=== PATIENT | female | born 1945 | race Caucasian/White ===

== ENCOUNTER 2018-11-01 08:50 | Emergency (ER) | payer MEDICARE ==
[~2018-11-01] VITALS: Ht 152.4 cm; Wt 105.7 kg
--- NOTE | 2018-11-01 09:07 | PHYS DOC ---
Past Medical History Past Medical History: Diabetes-Type II, Hypertension Past Surgical History: Other Additional Past Surgical Histo: LEFT KNEE, RIGHT HAND Alcohol Use: None Drug Use: None Adult General Chief Complaint Chief Complaint: ANKLE PROBLEM HPI HPI Patient is a 73 year old female who presents with 2200 last night she stood up from her chair and her left knee gave out and she rolled her left ankle. She went to bed and this morning she awoke with swelling and pain with standing on the left ankle. Review of Systems Review of Systems Constitutional: Denies fever or chills [] Eyes: Denies change in visual acuity, redness, or eye pain [] HENT: Denies nasal congestion or sore throat [] Respiratory: Denies cough or shortness of breath [] Cardiovascular: No additional information not addressed in HPI [] GI: Denies abdominal pain, nausea, vomiting, bloody stools or diarrhea [] : Denies dysuria or hematuria [] Musculoskeletal: Denies back pain. Left ankle joint pain [] Integument: Denies rash or skin lesions [] Neurologic: Denies headache, focal weakness or sensory changes [] All other systems were reviewed and found to be within normal limits, except as documented in this note. Current Medications Current Medications Current Medications Medications (Trade) Dose Ordered Sig/Sarina Start Time Stop Time Status Last Admin Dose Admin Acetaminophen/ Hydrocodone Bitart (Lortab 5/325) 1 tab 1X ONCE 11/01/18 09:15 11/01/18 09:16 DC 11/01/18 09:15 1 TAB Allergies Allergies Allergies Coded Allergies Type Severity Reaction Last Updated Verified No Known Drug Allergies 11/01/18 No Physical Exam Physical Exam Constitutional: Well developed, well nourished, no acute distress, non-toxic appearance. [] HENT: Normocephalic, atraumatic, bilateral external ears normal, oropharynx moist, no oral exudates, nose normal. [] Eyes: PERRLA, EOMI, conjunctiva normal, no discharge. [] Neck: Normal range of motion, no tenderness, supple, no stridor. [] Cardiovascular:Heart rate regular rhythm, no murmur [] Lungs & Thorax: Bilateral breath sounds clear to auscultation [] Abdomen: Bowel sounds normal, soft, no tenderness, no masses, no pulsatile masses. [] Skin: Warm, dry, no erythema, no rash. [] Back: No tenderness, no CVA tenderness. [] Extremities: Anterior left ankle tenderness, no cyanosis, no clubbing, ROM intact, 2+ left ankle edema. [] Neurologic: Alert and oriented X 3, normal motor function, normal sensory function, no focal deficits noted. [] Psychologic: Affect normal, judgement normal, mood normal. [] Current Patient Data Vital Signs Vital Signs Date Time Temp Pulse Resp B/P (MAP) Pulse Ox O2 Delivery O2 Flow Rate FiO2 11/01/18 09:15 19 95 Room Air 11/01/18 08:58 100.2 104 162/72 (102) 100.2 EKG EKG [] Radiology/Procedures Radiology/Procedures Left ankle Impressions: [facility] [address] [place] [address] IMAGING REPORT Signed PATIENT: BEN DESAI ACCOUNT: [id number] : 1945 LOCATION: ER AGE: 73 SEX: F EXAM STATUS: PRE ER ORD. PHYSICIAN: PATRICIA INIGUEZ APRN REASON: injury, pain PROCEDURE: ANKLE LEFT 3V Three-view left ankle study Clinical indications: Patient fell getting out of chair last night. Pain. FINDINGS: There is an oblique fracture of the distal shaft of the left fibula. There is 3 mm of medial displacement of the shaft with respect to the distal epiphysis. In the lateral view, there is fracture of the anterior aspect of the tibial plafond. There is widening of the medial mortise ankle joint consistent with disruption of the mortise ankle joint. Accessory ossification center of the medial malleolus is seen. No lytic process is seen. Lateral soft tissue swelling is evident. IMPRESSION: Acute posttraumatic fracture of the distal left fibula. Fractured anterior tibial plafond. Widening of the medial aspect of the mortise ankle joint consistent with tear of the deltoid ligament. Electronically signed by: Master Delgado MD (11/01/2018 9:23 AM) [id number] DICTATED and SIGNED BY: MASTER DELGADO MD DATE: 11/01/18 0920 Course & Med Decision Making Course & Med Decision Making Patient is a 73 year old female who presents with 2200 last night she stood up from her chair and her left knee gave out and she rolled her left ankle. She went to bed and this morning she awoke with swelling and pain with standing on the left ankle. Alert and oriented. States she did not take any pain medicine today. Rates her pain a 6 out of 10. There is no laxity in the joint. She has intact range of motion but there is pain. Pedal pulses present. There is no pedal edema but there is 2+ ankle edema. Patient has no tib-fib pain with palpation. Currently pain that she has around ankle is the anterior part of the ankle slightly tender with palpation. She can wiggle her toes. She denies any numbness or tingling. The pain does not radiate. She is given a [place] in the ED. Xray shows Acute posttraumatic fracture of the distal left fibula. Fractured anterior tibial plafond. Widening of the medial aspect of the mortise ankle joint consistent with tear of the deltoid ligament. Patient will be put into a posterior splint with a stirrup. I have spoken to Dr. Gu and he states to follow up with him on Monday. Dragon Disclaimer Sauloon Disclaimer This electronic medical record was generated, in whole or in part, using a voice recognition dictation system. Departure Departure Impression: Primary Impression: Left fibular fracture Additional Impressions: Tibia fracture Deltoid (ligament), ankle sprain Disposition: HOME, SELF-CARE Condition: GOOD Referrals: JAYMIE GU MD Patient Instructions: Tibial and Fibular Fracture, Adult Additional Instructions: Call Dr. Gu office on Monday for follow-up care. You can call them today to see if he can get a scheduled appointment for Monday also. Nonweightbearing on the affected leg and take medications as prescribed. Scripts Hydrocodone/Apap 5-325 (NORCO 5-325 TABLET) 1 Each Tablet 1 TAB PO PRN Q6HRS PRN for PAIN, #20 TAB 0 Refills Prov: HIRAPATRICIA M BRIMMING MACHINE OPERATOR 11/01/18 Problem Qualifiers Primary Impression: Left fibular fracture Encounter type: initial encounter Fibula location: distal Fracture type: closed Fracture morphology: unspecified fracture morphology Qualified Codes: S82.832A - Other fracture of upper and lower end of left fibula, initial encounter for closed fracture Additional Impressions: Tibia fracture Encounter type: initial encounter Tibia location: distal Fracture type: closed Fracture morphology: pilon Fracture alignment: nondisplaced Laterality: left Qualified Codes: S82.875A - Nondisplaced pilon fracture of left tibia, initial encounter for closed fracture Deltoid (ligament), ankle sprain Encounter type: initial encounter Laterality: left Qualified Codes: S93.422A - Sprain of deltoid ligament of left ankle, initial encounter PATRICIA INIGUEZ BRIMMING MACHINE OPERATOR Nov 01, 2018 09:07
[2018-11-01] MEDS ORDERED: HYDROcodone/APAP 5/325MG 1 TAB TABLET PO ONE (09:15)
--- NOTE | 2018-11-01 09:27 | RAD ---
Three-view left ankle study Clinical indications: Patient fell getting out of chair last night. Pain. FINDINGS: There is an oblique fracture of the distal shaft of the left fibula. There is 3 mm of medial displacement of the shaft with respect to the distal epiphysis. In the lateral view, there is fracture of the anterior aspect of the tibial plafond. There is widening of the medial mortise ankle joint consistent with disruption of the mortise ankle joint. Accessory ossification center of the medial malleolus is seen. No lytic process is seen. Lateral soft tissue swelling is evident. IMPRESSION: Acute posttraumatic fracture of the distal left fibula. Fractured anterior tibial plafond. Widening of the medial aspect of the mortise ankle joint consistent with tear of the deltoid ligament. Electronically signed by: Scott Delgado MD (11/01/2018 9:23 AM) [id number]
[2018-11-01] MEDS ORDERED: HYDR-3164 PO (09:41)
[2018-11-01 10:36] VITALS: BP 173/75
[2018-11-08] MEDS ORDERED: GLIM4TAB2 PO (12:27)
[2018-11-08] MEDS ORDERED: METF850T8 PO (12:27)
[2018-11-08] MEDS ORDERED: PIOG30TA41 PO (12:28)
[2018-11-08] MEDS ORDERED: LISI1TAB7 PO (12:28)
[2018-11-08] MEDS ORDERED: ASPI-630 PO (12:29)
[2018-11-09] MEDS ORDERED: OXYC1TAB19 PO ×2 (11:52→11:53)
[2018-11-09] MEDS ORDERED: PROM25TA10 PO (11:53)
[2018-11-09] MEDS ORDERED: HYDR-2765 PO (12:10)
[2019-02-21] MEDS ORDERED: ERGO500027 PO (18:37)
[2019-02-21] MEDS ORDERED: ASPI-630 PO (18:38)
[2019-02-21] MEDS ORDERED: LISI1TAB7 PO (18:38)
[2019-02-21] MEDS ORDERED: ACET500T33 PO (18:39)
[2019-03-08] MEDS ORDERED: OXYC1TAB15 PO (11:49)
[2019-03-08] MEDS ORDERED: ASPI325T11 PO (11:50)
[2019-03-14] MEDS ORDERED: POLY17PO29 PO (03:02)
[2019-03-14] MEDS ORDERED: MAG355OR11 PO (03:02)
[2019-03-14] MEDS ORDERED: ACET500T68 PO (03:02)
[2019-03-14] MEDS ORDERED: PROM12.58 PO (03:02)
[2019-03-14] MEDS ORDERED: BISA-42 PO (03:02)
[2019-03-19] MEDS ORDERED: Pantoprazole PO (08:55)
[2019-03-19] MEDS ORDERED: ACET500T68 PO (08:55)
[2019-03-19] MEDS ORDERED: OXYC1TAB15 PO (08:55)
[2019-03-19] MEDS ORDERED: AMOX1TAB11 PO (08:55)
== END 2018-11-01 10:38 | disposition home or self-care (01) ==
LOC: ER 08:50
DX: S82.832A Other fracture of upper and lower end of left fibula, initial encounter for closed fracture (principal); S82.875A Nondisplaced pilon fracture of left tibia, initial encounter for closed fracture; S93.422A Sprain of deltoid ligament of left ankle, initial encounter; I10 Essential (primary) hypertension; E11.9 Type 2 diabetes mellitus without complications; X50.9XXA Other and unspecified overexertion or strenuous movements or postures, initial encounter; Y93.89 Activity, other specified; Y92.89 Other specified places as the place of occurrence of the external cause; Y99.8 Other external cause status
CPT/HCPCS: 73610; 99284

== ENCOUNTER → 2018-11-09 | Day surgery (SDC) | payer MEDICARE ==
[~2018-11-09] VITALS: Ht 165.1 cm; Wt 105.7 kg
[~2018-11-09] MED LIST: ASPI-630 PO; BUPIVAC MPF-EPI 0.5%-1:200000 30 ML VIAL. ONE; DEXAMETHASONE SOD PHOS 20 MG/5 ML VIAL. ONE; GLIM4TAB2 PO; HYDR-2765 PO; HYDR-3164 PO; HYDROcodone/APAP 7.5/325MG 1 TAB TABLET PO ONE; HYDROmorphone 2 MG/ML VIAL IV PRN; IV RINGERS,LACTATED 1000ML 1,000 ML IV SCH; LIDOCAINE 1% PF 2 ML VIAL. ID PRN; LIDOCAINE 2% PF Vial for OR 5 ML VIAL. ONE; LISI1TAB7 PO; METF850T8 PO; MORPHINE SULFATE 4 MG/ML VIAL. IV PRN; ONDANSETRON PF 4 MG/2 ML VIAL. IV PRN; ONDANSETRON PF 4 MG/2 ML VIAL. ONE; OXYC1TAB19 PO; PIOG30TA41 PO; PROCHLORPERAZINE 10 MG/2 ML VIAL. IV PRN; PROM25TA10 PO; PROPOFOL 20 ML IV ONE; SEVOFLURANE 31 TO 60 MINUTES. IH ONE; ePHEDrine PF IN SALINE 50 MG/5 ML DISP.SYRIN IV ONE; fentaNYL PF VIAL 100 MCG/2 ML VIAL IV PRN; fentaNYL PF VIAL 100 MCG/2 ML VIAL ONE; oxyCODONE/APAP 7.5/325 1 TAB TABLET ONE; oxyCODONE/APAP 7.5/325 1 TAB TABLET PO ONE
--- NOTE | 2018-11-09 08:45 | PDOC1 ---
History and Physical Date of Admission Date of Admission DATE: 11/09/18 TIME: 08:35 Identification/Chief Complaint Chief Complaint left ankle fracture Source Source: Chart review, Patient History of Present Illness History of Present Illness This 73-year-old woman stood up from a chair on October 31, and her knee buckled and she rolled her left ankle. She got up the next morning the 10th and it was severely painful and swollen. She went to the emergency room where x-rays showed a lateral malleolus fracture. She was placed in a splint. She has a displaced fracture, and surgery is recommended. She is here for left ankle fracture surgery. Past Medical History Cardiovascular: HTN Endocrine: Diabetes Past Surgical History Past Surgical History left knee surgery, carpal tunnel release Family History Family History mother and father are Social History Smoke: Quit ALCOHOL: none Current Medications Current Medications Current Medications Ondansetron HCl (Zofran) 4 mg PRN Q6HRS PRN IV NAUSEA/VOMITING; Start 11/09/18 at 07:00; Stop 11/10/18 at 06:59 Fentanyl Citrate (Fentanyl 2ml Vial) 25 mcg PRN Q5MIN PRN IV MILD PAIN; Start 11/09/18 at 07:00; Stop 11/10/18 at 06:59 Fentanyl Citrate (Fentanyl 2ml Vial) 50 mcg PRN Q5MIN PRN IV MODERATE TO SEVERE PAIN; Start 11/09/18 at 07:00; Stop 11/10/18 at 06:59 Morphine Sulfate (Morphine Sulfate) 1 mg PRN Q10MIN PRN IV SEVERE PAIN; Start 11/09/18 at 07:00; Stop 11/10/18 at 06:59 Ringer's Solution 1,000 ml @ 30 mls/hr Q24H IV ; Start 11/09/18 at 07:00; Stop 11/09/18 at 18:59 Lidocaine HCl (Xylocaine-Mpf 1% 2ml Vial) 2 ml PRN 1X PRN ID IV START; Start at 07:00; Stop 11/10/18 at 06:59 Hydromorphone HCl (Dilaudid) 0.5 mg PRN Q10MIN PRN IV SEV PAIN, Second choice; Start 11/09/18 at 07:00; Stop 11/10/18 at 06:59 Prochlorperazine Edisylate (Compazine) 5 mg PACU PRN PRN IV NAUSEA, MRX1; Start 11/09/18 at 07:00; Stop 11/10/18 at 06:59 Cefazolin Sodium/ Dextrose 50 ml @ 100 mls/hr 1X PREOP PRN IV PRIOR TO PROCEDURE; Start 11/09/18 at 06:00; Stop 11/09/18 at 18:00 Active Scripts Active [place] 5-325 Tablet (Acetaminophen/Hydrocodone Bitart) 1 Each Tablet 1 Tab PO PRN Q6HRS PRN Reported Aspirin 81 Mg Tab.chew 1 Tab PO DAILY Lisinopril-Hctz 20-25 Mg Tab (Lisinopril/Hydrochlorothiazide) 1 Each Tablet 1 Tab PO DAILY Actos (Pioglitazone Hcl) 30 Mg Tablet 1 Tab PO DAILY Metformin Hcl 850 Mg Tablet 850 Mg PO BIDWMEALS Glimepiride 4 Mg Tablet 1 Tab PO DAILY Allergies Allergies: Coded Allergies: latex (Verified Allergy, Unknown, BROKE OUT WITH HIVES, 11/08/18) ROS General: No: Chills, Night Sweats Eyes: No Double vision HEENT: No: Heacaches Hematological and Lymphatic: No: Blood Clots Respiratory: No: Cough, Shortness of breath, SOB with excertion Cardiovascular: No Chest Pain, No Palpitations Gastrointestinal: No Nausea, No Vomiting, No Diarrhea, No Constipation Musculoskeletal: Yes Joint Pain Neurological: No Bowel/Bladder ControlChng Physical Exam General: Alert, Cooperative HEENT: Atraumatic Lungs: Normal air movement Heart: RRR Abdomen: Soft Extremities: Normal pulses, Other (Patient is unable to weight bear on the left ankle. The overall alignment is swollen and slightly grossly enlarged at the joint. There is swelling laterally at the distal fibula. There is focal tenderness of the distal fibula at the fracture site. The deltoid ligament is tender, swollen, and slightly ecchymotic. The syndesmosis ligaments are nontender. External rotation stress testing shows minimal pain at the ankle joint. Motor strength is decreased mobility due to pain with no focal neurologic deficit. Active range of motion at the ankle is decreased. Aside from the ecchymosis, the skin, pulses, and sensation are normal at the ankle, foot, and toes . ) Skin: No rashes, No breakdown, No significant lesion Neuro: Normal speech, Sensation intact Psych/Mental Status: Mental status NL, Mood NL Images Images [facility] [address] [place] [address] IMAGING REPORT Signed PATIENT: BEN DESAI ACCOUNT: [id number] : 1945 LOCATION: ER AGE: 73 SEX: F EXAM STATUS: PRE ER ORD. PHYSICIAN: PATRICIA INIGUEZ APRN REASON: injury, pain PROCEDURE: ANKLE LEFT 3V Three-view left ankle study Clinical indications: Patient fell getting out of chair last night. Pain. FINDINGS: There is an oblique fracture of the distal shaft of the left fibula. There is 3 mm of medial displacement of the shaft with respect to the distal epiphysis. In the lateral view, there is fracture of the anterior aspect of the tibial plafond. There is widening of the medial mortise ankle joint consistent with disruption of the mortise ankle joint. Accessory ossification center of the medial malleolus is seen. No lytic process is seen. Lateral soft tissue swelling is evident. IMPRESSION: Acute posttraumatic fracture of the distal left fibula. Fractured anterior tibial plafond. Widening of the medial aspect of the mortise ankle joint consistent with tear of the deltoid ligament. Electronically signed by: Master Delgado MD (11/01/2018 9:23 AM) [id number] DICTATED and SIGNED BY: MASTER DELGADO MD DATE: 11/01/18 0920 VTE Prophylaxis Ordered VTE Prophylaxis Devices: Yes VTE Pharmacological Prophylaxi: Yes Assessment/Plan Assessment/Plan Displaced fracture of lateral malleolus of left fibula, initial encounter for closed fracture S82.62XA Nonoperative treatment for this is technically possible, but would cause ankle problems, stiffness and arthritis and she would likely limp the rest of her life. Surgical reduction and fixation is likely to give her a near-normal ankle. We discussed the potential risks of the surgery which include need for plate and screw hardware removal in a year or more, possible syndesmosis fixation, possible hardware removal of syndesmosis screws in 3 months, bleeding , infection, numbness, blood clots, malunion, nonunion, stiffness, arthritis, or other potential surgical or anesthetic complications. I do recommend open treatment with internal fixation. She agrees with that plan. JAYMIE HOBBS MD Nov 09, 2018 08:45
--- NOTE | 2018-11-09 11:41 | PDOC4 ---
Operative Note Operative Note Date of Procedure: October 27, 2017 Pre-Op Diagnosis: Displaced fracture of lateral malleolus of left fibula, initial encounter for closed fracture ICD-10 S82.62XA Post-Op Diagnosis: same Procedure: Open treatment of distal fibular fracture (lateral malleolus) with internal fixation CPT 50468, left ankle Anesthesia Type: General Surgeon: Jaymie Gu MD EBL: 25 mL Specimens Obtained: none Drains: none Complications: none Tourniquet time: 18 minutes Tourniquet pressure: 350 mm Hg Implants: Synthes stainless small fragment 3.5 mm INDICATIONS FOR PROCEDURE: The patient is a 73 year-old with a displaced unstable left ankle fracture. The patient and I discussed the risks and benefits of operative treatment. Surgical fixation likely will give a better long-term outcome. We talked about the risks of the operative fixation such as the risks of bleeding, infection, blood clots, need for hardware removal, stiffness or other potential surgical or anesthetic complications. All of the patient's questions about surgery were answered and they desired to proceed. Written consent was obtained. PROCEDURE IN DETAIL: The patient was identified in the preoperative holding area. The correct left lower extremity was marked by me. The patient was taken to the operating room, where a general anesthetic was used. Preoperative antibiotics were given intravenously. A timeout procedure was performed. A padded tourniquet was used on the upper left thigh. The limb was prepared in sterile fashion with ChloraPrep solution, and sterile drapes were applied with a sterile glove over the toes and heel. An Esmarch bandage was used to exsanguinate the limb and the tourniquet was inflated. The direct lateral approach to the distal fibula was used. Sharp dissection was used and Bovie electrocautery was used as needed for hemostasis. The fracture was easily identified and exposed. The fracture was gapped open with traction, and fracture hematoma was cleared with curettes, rongeurs and irrigation. I then used longitudinal traction and internal rotation to help reduce the fracture, and a lobster claw bone clamp was used to now reduce the fracture. An interfragmentary lag screw was placed using a threaded hole and a gliding hole, across the fracture site to stabilize it, so that the bone clamp could be removed. I then applied a nonlocking 8 hole one-third tubular plate laterally. I contoured the very tip of the plate to fit the tip of the distal fibula. I applied cortical screws proximally and cancellous screws distally for rigid fixation across the fracture site to stabilize it. Satisfactory reduction and fixation was obtained of the fibula which was confirmed using the image intensifier. I now stressed the syndesmosis and the medial clear space was stable and anatomically aligned. The tourniquet was released. Bovie electrocautery was used for hemostasis. Irrigation was used and the incision was closed in layers with #1 Vicryl, number 2-0 Vicryl and dinora. Local anesthetic 30 mL of 0.5% bupivacaine with epinephrine with epinephrine was injected into the skin edges. Xeroform and a sterile dressing and a splint were applied. There were no apparent complications. JAYMIE GU MD Nov 09, 2018 11:41
[2018-11-09 11:55] VITALS: BP 186/64
== END | disposition home or self-care (01) ==
LOC: SURG 08:20
PROVIDERS: ATTEND Orthopaedic Surgery
DX: S82.62XA Displaced fracture of lateral malleolus of left fibula, initial encounter for closed fracture (principal); S82.832A Other fracture of upper and lower end of left fibula, initial encounter for closed fracture; I10 Essential (primary) hypertension; E11.9 Type 2 diabetes mellitus without complications; Y93.89 Activity, other specified; Y92.89 Other specified places as the place of occurrence of the external cause; Y99.8 Other external cause status; Z91.040 Latex allergy status; Z79.899 Other long term (current) drug therapy; Z79.84 Long term (current) use of oral hypoglycemic drugs; Z98.890 Other specified postprocedural states; Z87.891 Personal history of nicotine dependence
CPT/HCPCS: 27792; 82962; A7015; C1713; J0696; J1100; J2001; J2405; J2704; J3010; J3490

== ENCOUNTER → 2019-02-08 | Outpatient (CLI) | payer MEDICARE ==
[2018-11-09 11:55] VITALS: BP 186/64
[~2019-02-08] MED LIST changes: +ACET500T33 PO; +ACET500T68 PO; +AMOX1TAB11 PO; +ASPI325T11 PO; +BISA-42 PO; -BUPIVAC MPF-EPI 0.5%-1:200000 30 ML VIAL. ONE; -DEXAMETHASONE SOD PHOS 20 MG/5 ML VIAL. ONE; +ERGO500027 PO; -HYDROcodone/APAP 7.5/325MG 1 TAB TABLET PO ONE; -HYDROmorphone 2 MG/ML VIAL IV PRN; -IV RINGERS,LACTATED 1000ML 1,000 ML IV SCH; -LIDOCAINE 1% PF 2 ML VIAL. ID PRN; -LIDOCAINE 2% PF Vial for OR 5 ML VIAL. ONE; +MAG355OR11 PO; +MELO15TA23 PO; -MORPHINE SULFATE 4 MG/ML VIAL. IV PRN; -ONDANSETRON PF 4 MG/2 ML VIAL. IV PRN; -ONDANSETRON PF 4 MG/2 ML VIAL. ONE; +OXYC1TAB15 PO; +POLY17PO29 PO; -PROCHLORPERAZINE 10 MG/2 ML VIAL. IV PRN; +PROM12.58 PO; -PROPOFOL 20 ML IV ONE; +Pantoprazole PO; -SEVOFLURANE 31 TO 60 MINUTES. IH ONE; -ePHEDrine PF IN SALINE 50 MG/5 ML DISP.SYRIN IV ONE; -fentaNYL PF VIAL 100 MCG/2 ML VIAL IV PRN; -fentaNYL PF VIAL 100 MCG/2 ML VIAL ONE; -oxyCODONE/APAP 7.5/325 1 TAB TABLET ONE; -oxyCODONE/APAP 7.5/325 1 TAB TABLET PO ONE
--- NOTE | 2019-02-08 16:02 | RAD ---
Left lower extremity bone length study, 02/08/2019: History total: Preop evaluation for knee surgery AP views of the left femur and lower leg were obtained as requested with markers placed on the skin surface laterally to aid in preoperative bone length measurements. There is moderate degenerative change at the left knee with dominant involvement of the medial compartment. There is mild lateral subluxation of the proximal tibia relative to the distal femur. Moderate degenerative change is evident at the left hip joint. A surgical plate and screws is evident related to the distal fibula, apparently transfixing an old healed fracture. These limited views are otherwise unremarkable. Electronically signed by: Hema Hinojosa MD (02/08/2019 3:59 PM) [facility]
--- NOTE | 2019-02-08 16:33 | RAD ---
MRI study of the left knee without contrast Clinical indications: Chronic left knee pain. Preoperative evaluation using the Leonardo and Nephew protocol. TECHNIQUE: Noncontrast MRI sequences of the left knee were performed using the Leonardo and Nephew protocol. FINDINGS: The posterior cruciate ligament is intact. The anterior cruciate ligament is thin and atrophic but otherwise intact. The quadriceps and patellar tendons are intact. There is degeneration and possible tear of the root ligament of the posterior horn of the lateral meniscus. There is a large defect of the posterior horn of the medial meniscus which is consistent with a partial meniscectomy. Evaluation of the body of both menisci is difficult without coronal imaging. Evaluation of collateral ligaments is difficult without coronal imaging. No edema is seen involving the medial collateral ligament or the lateral collateral ligament complex however. The popliteus tendon appears intact. No fracture or marrow infiltrative process is seen. There is severe chondromalacia with loss of articular cartilage of the medial tibiofemoral joint compartment with [id number] interface. There is prominent spurring of this joint compartment. There is moderate chondromalacia of the lateral tibiofemoral joint compartment. There is mild degenerative spurring of this joint compartment. There is severe chondromalacia patellae with loss of the articular cartilage of the medial patellar facet and apex and moderate subchondral bone marrow edema. There is severe trochlear chondromalacia involving the trochlear groove and medial aspect of the trochlea resulting in [id number] interface of the medial portion of the patellofemoral joint compartment. There is moderate spurring of this joint compartment. The medial and lateral retinacular ligaments are intact. No distended Dawkins's cyst is seen. Small knee joint effusion is evident. No loose body is seen. No muscle edema is evident. 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 Moderate chondromalacia of the lateral tibiofemoral joint compartment mainly involving the posterior weightbearing portion of the lateral femoral condyle. Severe chondromalacia patellae and trochlear chondromalacia. Partial meniscectomy of the medial meniscus. Degeneration and possible tear of the root ligament of the posterior horn of the lateral meniscus. Atrophy and thinning of the ACL. Electronically signed by: Scott Delgado MD (02/08/2019 4:30 PM) [id number]
== END | disposition home or self-care (01) ==
LOC: RAD 14:59
PROVIDERS: ATTEND Orthopaedic Surgery
DX: Z01.818 Encounter for other preprocedural examination (principal); S83.102A Unspecified subluxation of left knee, initial encounter; M17.12 Unilateral primary osteoarthritis, left knee; M94.262 Chondromalacia, left knee; X58.XXXA Exposure to other specified factors, initial encounter; Y93.89 Activity, other specified; Y92.89 Other specified places as the place of occurrence of the external cause; Y99.8 Other external cause status
CPT/HCPCS: 73721; 77073

== ENCOUNTER → 2019-02-11 | Outpatient (CLI) | payer MEDICARE ==
[2018-11-09 11:55] VITALS: BP 186/64
[2019-02-11 09:59] LABS: BASO % 0 % (0-3); EOS # 0.1 x10^3/uL (0.0-0.7); EOS % 1 % (0-3); HEMATOCRIT 34.9 % (36.0-47.0); HEMOGLOBIN 11.6 g/dL (12.0-15.5); LYMPH # 1.9 x10^3/uL (1.0-4.8); LYMPH % 43 % (24-48); MEAN CORPUSCULAR HEMOGLOBIN 31 pg (25-35); MEAN CORPUSCULAR HGB CONC 33 g/dL (31-37); MEAN CORPUSCULAR VOLUME 92 fL (79-100); MONO # 0.4 x10^3/uL (0.0-1.1); MONO % 9 % (0-9); NEUT % 47 % (31-73); PLATELET COUNT 180 x10^3/uL (140-400); WHITE BLOOD COUNT 4.3 x10^3/uL (4.0-11.0)
[2019-02-11 10:12] LABS: PROTHROMBIN TIME PATIENT 12.5 SEC (11.7-14.0)
[2019-02-11 10:16] LABS: ALBUMIN 3.3 g/dL (3.4-5.0); CALCIUM 9.1 mg/dL (8.5-10.1); GFR 54.5; POTASSIUM 3.5 mmol/L (3.5-5.1)
--- NOTE | 2019-02-11 13:56 | EKG ---
[facility] [address] [place] [address] Test Date: 2019-02-11 Test Time: 13:40:44 Pat Name: BEN DESAI Department: Room: Gender: F Wood Gouger: AT : 1945 Requested By: JAYMIE HOBBS Order Number: [id number] Reading MD: Topher Solano MD Measurements Intervals [place] Rate: 69 P: 5 OK: 148 QRS: 26 QRSD: 84 T: 28 QT: 366 QTc: 393 Interpretive Statements SINUS RHYTHM NON-SPECIFIC ST/T CHANGES Electronically Signed On 02-14-2019 11:09:18 CDT by Topher Solano MD
--- NOTE | 2019-02-11 17:38 | RAD ---
PA and lateral chest. HISTORY: Preop, knee replacement PA and lateral views were taken of the chest. Lungs are free of infiltrates. Heart is normal in size. There is no pleural effusion. There is hypertrophic change in the spine. IMPRESSION: 1. No acute chest disease. Electronically signed by: Boby Peterson MD (02/11/2019 5:36 PM) [id number]
[2019-02-12 00:07] LABS: HEMOGLOBIN A1C 6.2 % (4.8-5.6)
--- NOTE | 2019-02-22 11:00 | NUR ---
PRE - OP TEST REPORTS FAXED TO DR.STEPHANIE MARR,PCP 02/12/2019 AT 1523 AND 02/12/2019 AT 1543 AND RECEIVED TRANSMITTAL CONFIRMATION.ALSO CALLED 03/16/2019 AND SAID THAT SHE PRESCRIBED BACTRIM 1 TAB. BID X5 DAYS. URINE CULTURE'S FINAL REPORT FAXED TO ,PCP 02/15/2019 [id number] AND AT 02/15/19 AT 1027. FAXED 'S MEDICAL CLEARANCE NOTE TO 'S OFFICE 02/21/2019 AT 1816. URINE TEST TO BE REPEATED 02/26/2019 AND CALLED PATIENT 02/21/2019 AND OKAY WITH HER.
== END | disposition home or self-care (01) ==
LOC: SURGPAT 14:28
PROVIDERS: ATTEND Orthopaedic Surgery
DX: Z01.818 Encounter for other preprocedural examination (principal); M89.38 Hypertrophy of bone, other site; M17.12 Unilateral primary osteoarthritis, left knee; Z88.8 Allergy status to other drugs, medicaments and biological substances
CPT/HCPCS: 36415; 71046; 80048; 82040; 82306; 83036; 85025; 85610; 85651; 85730; 87641; 93005

== ENCOUNTER → 2019-02-12 | Outpatient (CLI) | payer MEDICARE ==
[2018-11-09 11:55] VITALS: BP 186/64
[2019-02-12 11:16] LABS: BILIRUBIN,URINE NEGATIVE (NEG); CLARITY,URINE CLEAR; COLOR,URINE YELLOW; NITRITE,URINE POSITIVE (NEG); PROTEIN,URINE NEGATIVE (NEG-TRACE); UROBILINOGEN,URINE 0.2 mg/dL (0.2 mg/dL)
[2019-02-12 11:30] LABS: SQUAMOUS EPITHELIAL CELL,UR FEW /LPF
[2019-02-12 11:31] LABS: BACTERIA,URINE MANY /HPF (0-FEW); RBC,URINE OCC /HPF (0-2)
== END | disposition home or self-care (01) ==
LOC: LAB 10:07
PROVIDERS: ATTEND Orthopaedic Surgery
DX: Z01.818 Encounter for other preprocedural examination (principal); M17.12 Unilateral primary osteoarthritis, left knee; N39.0 Urinary tract infection, site not specified; Z91.040 Latex allergy status
CPT/HCPCS: 81001; 87086; 87186

== ENCOUNTER → 2019-02-26 | Outpatient (CLI) | payer MEDICARE ==
[2018-11-09 11:55] VITALS: BP 186/64
[2019-02-26 10:44] LABS: BILIRUBIN,URINE NEGATIVE (NEG); CLARITY,URINE CLOUDY; COLOR,URINE YELLOW; NITRITE,URINE POSITIVE (NEG); PROTEIN,URINE NEGATIVE (NEG-TRACE)
[2019-02-26 11:00] LABS: BACTERIA,URINE MANY /HPF (0-FEW); SQUAMOUS EPITHELIAL CELL,UR FEW /LPF; WBC,URINE TNTC /HPF (0-4)
--- NOTE | 2019-03-04 10:05 | NUR ---
JUST FAXED URINE CULTURE'S FINAL REPORTS TO AND [facility]IR AND RECEIVED TRANSMITTAL CONFIRMATION.
== END | disposition home or self-care (01) ==
LOC: LAB 10:01
PROVIDERS: ATTEND Orthopaedic Surgery
DX: R82.90 Unspecified abnormal findings in urine (principal)
CPT/HCPCS: 81001; 87086; 87186

== ENCOUNTER 2019-03-05 08:46 | Inpatient (IN) | payer MEDICARE ==
--- NOTE | 2019-03-04 16:59 | PDOC1 ---
History and Physical Date of Admission Date of Admission DATE: 03/04/19 TIME: 16:54 Identification/Chief Complaint Chief Complaint Left knee osteoarthritis pain Source Source: Chart review History of Present Illness History of Present Illness This 73-year-old woman recently had an ankle fracture which occurred because her left buckled and gave out she has had prior treatment for her left knee osteoarthritis including physical therapy and cortisone injection. She required surgery on the ankle fracture. Her ankle is healed but she is having severe difficulty walking due to left knee arthritis pain. She has moderate joint line loss radiographically, and we discussed options for treatment including knee replacement surgery. She would like to proceed with knee replacement and is here for elective knee replacement surgery. She had a UTI on several urine specimens, but has been treated with oral antibiotics Past Medical History Cardiovascular: HTN Endocrine: Diabetes Social History ALCOHOL: none Current Medications Current Medications Current Medications Ondansetron HCl (Zofran) 4 mg PRN Q6HRS PRN IV NAUSEA/VOMITING; Start 03/05/19 at 07:00; Stop 03/06/19 at 06:59 Fentanyl Citrate (Fentanyl 2ml Vial) 25 mcg PRN Q5MIN PRN IV MILD PAIN; Start 03/05/19 at 07:00; Stop 03/06/19 at 06:59 Fentanyl Citrate (Fentanyl 2ml Vial) 50 mcg PRN Q5MIN PRN IV MODERATE TO SEVERE PAIN; Start 03/05/19 at 07:00; Stop 03/06/19 at 06:59 Morphine Sulfate (Morphine Sulfate) 1 mg PRN Q10MIN PRN IV SEVERE PAIN; Start 03/05/19 at 07:00; Stop 03/06/19 at 06:59 Ringer's Solution 1,000 ml @ 30 mls/hr Q24H IV ; Start 03/05/19 at 07:00; Stop 03/05/19 at 18:59 Lidocaine HCl (Xylocaine-Mpf 1% 2ml Vial) 2 ml PRN 1X PRN ID PRIOR TO IV START; Start 03/05/19 at 07:00; Stop 03/06/19 at 06:59 Hydromorphone HCl (Dilaudid) 0.5 mg PRN Q10MIN PRN IV SEV PAIN, Second choice; Start 03/05/19 at 07:00; Stop 03/06/19 at 06:59 Prochlorperazine Edisylate (Compazine) 5 mg PACU PRN PRN IV NAUSEA, MRX1; Start 03/05/19 at 07:00; Stop 03/06/19 at 06:59 Morphine Sulfate 5 mg/Ketorolac Tromethamine 30 mg/Ropivacaine 60 ml/Epinephrine HCl 0.5 mg/Sodium Chloride 100 ml @ 100 mls/hr 1X ONCE INT ART ; Start 03/05/19 at 06:00; Stop 03/05/19 at 06:59 Active Scripts Active Reported Tylenol Extra Strength (Acetaminophen) 500 Mg Tablet 1,000 Mg PO PRN PRN Aspirin 81 Mg Tab.chew 1 Tab PO DAILY Lisinopril-Hctz 20-25 Mg Tab (Lisinopril/Hydrochlorothiazide) 1 Each Tablet 1 Tab PO DAILY Vitamin D2 (Ergocalciferol (Vitamin D2)) 50,000 Unit Capsule 1 Cap PO WEEKLY Actos (Pioglitazone Hcl) 30 Mg Tablet 1 Tab PO DAILY Metformin Hcl 850 Mg Tablet 850 Mg PO BIDWMEALS Glimepiride 4 Mg Tablet 1 Tab PO DAILY Allergies Allergies: Coded Allergies: latex (Verified Allergy, Unknown, BROKE OUT WITH HIVES, 02/07/19) Physical Exam General: Alert, Cooperative, No acute distress HEENT: Atraumatic Heart: RRR Abdomen: Soft Extremities: No clubbing, No cyanosis, No edema, Other (left ankle incision is well-healed. No tenderness at the ankle. The LEFT knee shows a mildly antalgic gait. There is varus alignment. No masses. No detectable effusion. Tenderness on the joint lines. Range of motion is 5-115 degrees. There is crepitus with range of motion, and pain at the extremes of motion. The knee is stable to varus and valgus stress without subluxation or laxity. Muscle strength is slightly weak for the quadriceps 4+/5 which may be due to pain or avoidance, and does not seem neurogenic, and the muscle tone and bulk is slightly decreased. The hamstring strength is 5/5. The skin is normal with no scars, rashes, lesions or ulcers. Light touch sensation is intact. No edema and no varicosities. Dorsalis pedis pulse is intact and capillary refill is normal) Images Images FINDINGS: Moderate joint space loss identified in the medial, lateral, patellofemoral compartments of the left knee likely degeneration VTE Prophylaxis Ordered VTE Prophylaxis Devices: Yes VTE Pharmacological Prophylaxi: Yes Assessment/Plan Assessment/Plan We discussed options for treatment for her knee arthritis pain. We discussed the potential risks of infection, neurovascular injury, bleeding, blood clots, need for revision surgery, or other potential surgical or anesthetic complications. We discussed the expected hospitalization and recovery. All of her questions about surgery were answered and she desires to proceed. JAYMIE HOBBS MD March 04, 2019 16:59
[2019-03-05] VITALS (8 sets, daily range): BP systolic 109–145; BP diastolic 58–83
[~2019-03-05] VITALS: Ht 165.1 cm; Wt 110.2 kg
[~2019-03-05 08:46] MED LIST changes: -ACET500T68 PO; -AMOX1TAB11 PO; -ASPI325T11 PO; -BISA-42 PO; +CELECOXIB 100 MG CAPSULE. PO PRN; +HYDROcodone/APAP 7.5/325MG 1 TAB TABLET PO PRN; +HYDROmorphone 2 MG/ML VIAL IV PRN; +IV RINGERS,LACTATED 1000ML 1,000 ML IV SCH; +LIDOCAINE 1% PF 2 ML VIAL. ID PRN; -MAG355OR11 PO; -MELO15TA23 PO; +MORPHINE SULFATE 2 MG/ML VIAL. IV PRN; +MORPHINE SULFATE 5 MG, KETOROLAC 30MG VIAL 30 MG, ROPIVacaine 0.5% PF 60 ML, EPINEPHrin... INT ART ONE; +ONDANSETRON PF 4 MG/2 ML VIAL. IV PRN; -OXYC1TAB15 PO; -POLY17PO29 PO; +PROCHLORPERAZINE 10 MG/2 ML VIAL. IV PRN; -PROM12.58 PO; -Pantoprazole PO; +TRANEXAMIC ACID 1,000 MG in IV NS 50ML -- 1ST BAG INJ ONE; +TRANEXAMIC ACID 1,000 MG in IV NS 50ML -- 2ND BAG INJ ONE; +fentaNYL PF VIAL 100 MCG/2 ML VIAL IV PRN
[2019-03-05 09:50] LABS: BILIRUBIN,URINE NEGATIVE (NEG); CLARITY,URINE CLEAR; COLOR,URINE YELLOW; NITRITE,URINE NEGATIVE (NEG); PROTEIN,URINE NEGATIVE (NEG-TRACE); UROBILINOGEN,URINE 0.2 mg/dL (0.2 mg/dL)
[2019-03-05] MEDS ORDERED: MELO15TA23 PO (10:05)
[2019-03-05 10:06] LABS: BACTERIA,URINE 0 /HPF (0-FEW); RBC,URINE 0 /HPF (0-2); SQUAMOUS EPITHELIAL CELL,UR MOD /LPF; WBC,URINE OCC /HPF (0-4)
[2019-03-05] MEDS ORDERED: LIDOCAINE 2% PF 5 ML VIAL. ONE (11:48)
[2019-03-05] MEDS ORDERED: PROPOFOL 20 ML IV ONE (11:48)
[2019-03-05] MEDS ORDERED: DEXAMETHASONE SOD PHOS 4 MG/ML VIAL ONE (11:48)
[2019-03-05] MEDS ORDERED: ONDANSETRON PF 4 MG/2 ML VIAL. ONE (11:48)
[2019-03-05] MEDS ORDERED: FAMOTIDINE 20 MG/2 ML VIAL ONE ×2 (11:48→13:09)
[2019-03-05] MEDS ORDERED: fentaNYL PF VIAL 100 MCG/2 ML VIAL ONE ×2 (11:49→14:29)
[2019-03-05] MEDS ORDERED: MIDAZOLAM HCL/PF 2 MG/2 ML VIAL. ONE (11:49)
[2019-03-05] MEDS ORDERED: ROCURONIUM 50 MG/5 ML VIAL. ONE (11:49)
[2019-03-05] MEDS ORDERED: TOBRAMYCIN POWDER 1.2 GM VIAL. ONE (12:05)
[2019-03-05] MEDS ORDERED: VANCOMYCIN 1 GM VIAL. ONE (12:05)
[2019-03-05] MEDS ORDERED: PHENYLEPHRINE in 0.9% NACL PF 1 MG/10 ML SYRINGE. IV ONE (13:32)
[2019-03-05] MEDS ORDERED: VANCOMYCIN 1 GM VIAL. TP ONE (14:01)
[2019-03-05] MEDS ORDERED: hydrALAZINE 20 MG/ML VIAL. ONE (14:11)
[2019-03-05] MEDS ORDERED: GLYCOPYRROLATE 1 MG/5 ML VIAL. ONE (14:56)
[2019-03-05] MEDS ORDERED: NEOSTIGMINE METHYLSULFATE 5 MG/5 ML SYRINGE. ONE (14:56)
[2019-03-05] MEDS ORDERED: ESMOLOL 100 MG/10 ML VIAL. IVP ONE (14:56)
[2019-03-05] MEDS ORDERED: METOPROLOL TARTRATE 5 MG/5 ML VIAL. IVP ONE (15:09)
--- NOTE | 2019-03-05 15:11 | PDOC4 ---
Operative Note Operative Note Date of Procedure: March 05, 2019 Pre-Op Diagnosis: Unilateral primary osteoarthritis, left knee. M17.12 Post-Op Diagnosis: same Procedure: left total knee arthroplasty with patella resurfacing, CPT 46618 Surgeon: Jaymie Gu MD Project Manager/Team Coach: GUERLINE Bhakta (Annie) Anesthesia: General EBL: 100 mL Specimens Obtained: left knee bone and soft tissue Complications: none Implant Company: [employer] Drains: hemovac plus pain catheter Tourniquet time: 56 Minutes Tourniquet Pressure: 350 mm Hg Indications for Procedure: Arthritis pain unrelieved by nonoperative management Findings: Severe osteoarthritis with bone on bone contact medially and eburnated deficient medial tibia. Osteoarthritis changes present laterally and the patellofemoral compartment. Medial release of the deep MCL from the tibia was re quired, along with resection of medial tibial osteophytes. Patient-matched cutting blocks were used. Implants used: Size 4 left bicruciate stabilized Journey II BCS cobalt chrome femoral component, size 3 left Journey nonporous tibial baseplate, size 3-4 13 mm left Journey II BCS XLPE articular insert, 32 mm oval Radha II resurfacing patellar component Procedure in Detail: The patient was identified in the preoperative holding area, and the correct left lower extremity was marked by me. The patient was taken to the operating room where the patient was anesthetized by the Department of Anesthesia. Preoperative antibiotics were given intravenously. Tranexamic acid 1 g was given intravenously for intraoperative hemostasis. A "time-out" procedure was per formed. The patient was positioned supine on the operative table with a tourniquet on the upper left thigh. The left lower limb was thoroughly scrubbed, then sterile surgical prep solution was applied, and the limb was draped in sterile fashion. An impervious stockinet and adhesive drape were used such that the skin was entirely covered. An De La Garza leg moctezuma was used. The operating team wore personal exhaust-ventilated hoods. The limb exsanguinated with an Esmarch bandage, and the tourniquet was inflated. A midline skin incision was made with a scalpel using the patella and tibial tubercle as landmarks. Electrocautery was used for hemostasis. My instruction assistant principal used rake retractors. A medial parapatellar arthrotomy incision was used with extension into the distal quadriceps tendon. The patella was retracted laterally and Hohmann retractors were now used by my instruction assistant principal. Excess synovium, the menisci, and the cruciate ligaments were resected sharply. The patella was assessed and excess synovium and osteophytes around the patellar articulation were removed. The patella was measured with a caliper, cut freehand with a saw using caliper measurements, sized, and then drilled for an oval three-pegged patella component. A periarticular multimodal ropivacaine anesthetic injection was used in the suprapatellar pouch and distal quadriceps muscle. Whitesides's line and the transepicondylar axis were marked on the femur. A patient-matched cutting guide was pinned to the distal femur and the distal cut was made. My instruction assistant principal held Hohmann retractors and an [place] retractor to protect the medial and lateral collateral ligaments, the patellar tendon, the skin and the other soft tissues. A 5-in-1 Journey II cutting guide was then applied and pinned to the femur. The posterior, anterior, and all chamfer cuts were made with the oscillating saw. A patient-matched cutting guide was pinned to the tibia and rotational alignment and the planned resection thickness assessed. An external alignment criss was used to verify the planned cut in the varus-valgus plane and regarding posterior slope referencing the tibial tubercle, the tibial shaft, the ankle joint, and the second metatarsal. The upper tibia was cut made with an oscillating saw. My instruction assistant principal held Hohmann retractors and a posterior cruciate ligament retractor to protect the medial and lateral collateral ligaments, the patellar tendon, the skin, the peroneal nerve and the other soft tissues. The upper tibia was sized with a trial baseplate. The posterior compartment was cleared of osteophytes and loose bodies. The periarticular anesthetic injection was used in the posterior compartment. The box cut for a posterior stabilized component was made. A preliminary reduction was performed with a trial femur, trial tibial baseplate and trial polyethylene. Soft-tissue balancing was now performed, and extension and rotation of the alignments was checked using a guide criss in the tibial trial and a guide pin in the femur. A medial release was required, along with resection of medial osteophytes. The stability was assessed using different thicknesses of tibial articular surface to find satisfactory stability and good range of motion. The rotation of the tibial component was marked on the upper tibia. Final trial reduction was now performed verifying patella tracking and tibiofemoral stability and alignment. The tibia preparation was completed with a drill, saw, and fin punch at the previously noted rotation. The final implants were verified and opened. Outer gloves were changed by the operating team. The bone cuts were washed thoroughly with the [employer] InterPulse device and dried. Two packages of [employer] HV bone cement were mixed in powdered form with Vancomycin 1gm and Tobramycin 1.2 gm, and then vacuum-mixed with the monomer, and placed into a cement gun. The cut surfaces of the bone were thoroughly dried with Paiz-tip suction and with laparotomy sponges for cement interdigitation. The final components were cemented into place. The knee was kept at full extension while the cement hardened, and excess cement was removed. A Betadine lavage was used throughout the surgical exposure, and allowed to sit in contact with the exposed joint surfaces for three minutes while the cement hardened. Tranexamic acid 1 g was redosed intravenously for additional intraoperative hemostasis. The tourniquet was released, and electrocautery was used for hemostasis. A final periarticular anesthetic injection was used for pain relief. A final check of [id number] and stability was made, and the polyethylene implant final size was chosen. The polyethylene implant was secured to the tibial baseplate, and the knee was reduced a final time and range of motion and stability was confirmed. Thorough irrigation was used. Hemovac and pain catheter were used. Topical Vancomycin 1 gm was used during the closure. The arthrotomy was closed with interrupted [id number] #1 PDS suture. The arthrotomy incision was then run with #1 STRATAFIX Symmetric PDS Plus Knotless suture. The subcutaneous tissues were reapproximated initially with 2-0 PDS . Next the subcuticular layer was reapproximated in a running fashion with #3-0 Stratafix suture by my instruction assistant principal. The skin incision was then covered and reinforced with Acticoat, followed by a NADYA single use negative pressure wound therapy dressing Soft roll and an Jaime wrap were applied. Needle and sponge counts were correct. There were no apparent complications. The patient returned to the recovery room in stable condition. JAYMIE GU MD March 05, 2019 15:11
[2019-03-05] MEDS ORDERED: CALCIUM CARBONATE 500 MG TAB.CHEW PO PRN (15:15)
[2019-03-05] MEDS ORDERED: MORPHINE SULFATE 4 MG/ML VIAL. IV PRN (15:15)
[2019-03-05] MEDS ORDERED: diphenhydrAMINE 50 MG/ML VIAL IV PRN (15:15)
[2019-03-05] MEDS ORDERED: METOCLOPRAMIDE HCL 10 MG/2 ML VIAL. IV PRN (15:15)
[2019-03-05] MEDS ORDERED: fentaNYL PF VIAL 100 MCG/2 ML VIAL IV PRN ×2 (15:15)
[2019-03-05] MEDS ORDERED: DEXTROSE 50% 25 GM / 50ML DISP.SYRIN. IV PRN (15:15)
[2019-03-05] MEDS ORDERED: 0.9 % SODIUM CHLORIDE 10 ML DISP.SYRIN. IV PRN (15:15)
[2019-03-05] MEDS ORDERED: ZOLPIDEM 5 MG TABLET. PO PRN (15:15)
[2019-03-05] MEDS ORDERED: PROCHLORPERAZINE 5 MG TABLET. PO PRN (15:15)
[2019-03-05] MEDS ORDERED: MORPHINE SULFATE 2 MG/ML VIAL. IV PRN (15:15)
[2019-03-05] MEDS ORDERED: SEVOFLURANE > 120 MINUTES. IH ONE (15:22)
[2019-03-05] MEDS ORDERED: oxyCODONE/APAP 5/325 1 TAB TABLET PO PRN (15:45)
[2019-03-05] MEDS ORDERED: IV NORMAL SALINE 1000ML BAG 1,000 ML IV SCH (16:00)
[2019-03-05] MEDS ORDERED: PROCHLORPERAZINE 10 MG/2 ML VIAL. ONE (16:07)
--- NOTE | 2019-03-05 16:21 | RAD ---
AP and lateral views left knee. 03/05/2019 3:35 PM Indication: Postoperative Comparison Study: Left knee radiographs January 31, 2019. Findings: There are postsurgical changes following recent total knee arthroplasty. Hardware is appropriate in position without evidence of complication. No fractures or dislocations are identified. Stigmata of recent surgery including surgical drainage catheter and intra-articular gas are noted. Impression: Expected postsurgical changes following recent left total knee arthroplasty. Electronically signed by: Faustino Sullivan MD (03/05/2019 4:18 PM) [id number]
[2019-03-05] MEDS ORDERED: IPRATRPIUM/ALBUTEROL 0.5/2.5MG 3 ML NEBU. NEB ONE (16:30)
[2019-03-05] MEDS ORDERED: INSULIN LISPRO 100 UNIT/ML 3ML VIAL. SQ PRN (17:15)
[2019-03-05] MEDS: ONDANSETRON PF 4 MG/2 ML VIAL. IV SCH ×2 (18:00→23:57)
[2019-03-05] MEDS: ONDANSETRON ODT 4 MG TAB.RAPDIS. PO SCH ×2 (18:00→23:57)
[2019-03-05] MEDS: KETOROLAC 30MG VIAL 30 MG, BUPIVACAINE MPF 0.25% 20 ML, EPINEPHrine 0.5 MG in TOTAL VOL... INT ART SCH (18:13)
[2019-03-05] MEDS: FERROUS SULFATE 325 MG TABLET. PO SCH (18:15)
[2019-03-05] MEDS: metFORMIN 850 MG TABLET PO SCH (18:15)
--- NOTE | 2019-03-05 18:18 | NUR ---
Zofran IV/po held, no nausea or vomiting
--- NOTE | 2019-03-05 18:39 | NUR ---
received from recovery. family at bedside. she has good sensation, pulses and motion in bilateral lower extremities. denies nausea; "just dry" given water and orange juice. admission history completed. denies pain at this time.
[2019-03-05] MEDS: ASPIRIN ENTERIC COATED 325 MG TABLET.DR. PO SCH (20:20)
[2019-03-06 02:44] VITALS: BP 134/74
[2019-03-06 05:30] VITALS: BP 135/83
[2019-03-06] MEDS ORDERED: MAGNESIUM HYDROXIDE 2,400 MG/30 ML ORAL.SUSP. PO PRN (06:00)
[2019-03-06] MEDS: ONDANSETRON PF 4 MG/2 ML VIAL. IV SCH ×2 (06:25→11:43)
[2019-03-06] MEDS: ONDANSETRON ODT 4 MG TAB.RAPDIS. PO SCH ×2 (06:25→11:43)
[2019-03-06] MEDS: KETOROLAC 30MG VIAL 30 MG, BUPIVACAINE MPF 0.25% 20 ML, EPINEPHrine 0.5 MG in TOTAL VOL... INT ART SCH (06:26)
[2019-03-06] MEDS: INSULIN LISPRO 300 UNITS/3 ML INSULN.PEN. SQ SCH ×3 (07:02→16:24)
[2019-03-06] MEDS: FERROUS SULFATE 325 MG TABLET. PO SCH ×2 (07:47→16:23)
[2019-03-06] MEDS: LISINOPRIL 20 MG TABLET PO SCH (07:47)
[2019-03-06] MEDS: MELOXICAM 7.5 MG TABLET PO SCH (07:47)
[2019-03-06] MEDS: MULTIVITAMIN with MINERAL TABLET. PO SCH (07:47)
[2019-03-06] MEDS: ASPIRIN ENTERIC COATED 325 MG TABLET.DR. PO SCH ×2 (07:47→20:46)
[2019-03-06] MEDS: oxyCODONE/APAP 5/325 1 TAB TABLET PO PRN ×3 (07:48→20:47)
[2019-03-06] MEDS: hydroCHLOROthiazide 25 MG TABLET PO SCH (07:48)
[2019-03-06] MEDS: GLIMEPIRIDE 2 MG TABLET. PO SCH (07:48)
[2019-03-06] MEDS: SENNOSIDES/DOCUSATE 8.6/50MG TABLET. PO SCH (07:48)
--- NOTE | 2019-03-06 07:54 | PDOC ---
ORTHO PROGRESS NOTES Subjective Patient feeling well with no complaint of any pain. Post-op Day: 1 Procedure L TKA Vitals Vital Signs Date Time Temp Pulse Resp B/P (MAP) Pulse Ox O2 Delivery O2 Flow Rate FiO2 03/06/19 07:48 Room Air 03/06/19 07:47 109 135/83 03/06/19 05:30 97.9 18 95 97.9 03/05/19 19:45 2.0 Labs Laboratory Tests Test 03/05/19 09:05 03/05/19 17:05 03/05/19 20:24 03/06/19 06:27 Urine Collection Type Unknown Urine Color Yellow Urine Clarity Clear Urine pH 5.0 Urine Specific [place] 1.025 Urine Protein Negative mg/dL (NEG-TRACE) Urine Glucose (UA) Negative mg/dL (NEG) Urine Ketones (Stick) Negative mg/dL (NEG) Urine Blood Negative (NEG) Urine Nitrite Negative (NEG) Urine Bilirubin Negative (NEG) Urine Urobilinogen Dipstick 0.2 mg/dL (0.2 mg/dL) Urine Leukocyte Esterase Negative (NEG) Urine RBC 0 /HPF (0-2) Urine WBC Occ /HPF (0-4) Urine Squamous Epithelial Cells Mod /LPF Urine Bacteria 0 /HPF (0-FEW) Urine Mucus Marked /LPF Glucose (Fingerstick) 257 mg/dL (70-99) 175 mg/dL (70-99) 114 mg/dL (70-99) Laboratory Tests Test 03/05/19 09:05 03/05/19 17:05 03/05/19 20:24 03/06/19 06:27 Urine Collection Type Unknown Urine Color Yellow Urine Clarity Clear Urine pH 5.0 Urine Specific [place] 1.025 Urine Protein Negative mg/dL (NEG-TRACE) Urine Glucose (UA) Negative mg/dL (NEG) Urine Ketones (Stick) Negative mg/dL (NEG) Urine Blood Negative (NEG) Urine Nitrite Negative (NEG) Urine Bilirubin Negative (NEG) Urine Urobilinogen Dipstick 0.2 mg/dL (0.2 mg/dL) Urine Leukocyte Esterase Negative (NEG) Urine RBC 0 /HPF (0-2) Urine WBC Occ /HPF (0-4) Urine Squamous Epithelial Cells Mod /LPF Urine Bacteria 0 /HPF (0-FEW) Urine Mucus Marked /LPF Glucose (Fingerstick) 257 mg/dL (70-99) 175 mg/dL (70-99) 114 mg/dL (70-99) Notes Awake and alert sitting up in chair at bedside. Assessment and Plan POD #1 S/P L TKA motor and sensory intact distally dressing dry and intact PT today ALLIE HICKEY APRN March 06, 2019 07:54
[2019-03-06] MEDS: PIOGLITAZONE 15 MG TABLET. PO SCH (08:26)
[2019-03-06] MEDS: metFORMIN 850 MG TABLET PO SCH ×2 (08:26→16:23)
[2019-03-06] MEDS ORDERED: NON FORMULARY ITEM (Lisinopril/Hydrochlorothiazide (Lisinopril-Hctz 20-25 Mg Tab) 1 TAB) PO SCH (09:00)
[2019-03-06] MEDS ORDERED: ERGOCALCIFEROL (VITAMIN D2) 50,000 UNIT CAPSULE. PO SCH (09:00)
[2019-03-06 09:25] LABS: HEMATOCRIT 31.8 % (36.0-47.0); HEMOGLOBIN 10.6 g/dL (12.0-15.5)
[2019-03-06] MEDS ORDERED: ONDANSETRON ODT 4 MG TAB.RAPDIS. PO PRN (12:00)
[2019-03-06] MEDS ORDERED: ONDANSETRON PF 4 MG/2 ML VIAL. IV PRN (12:00)
--- NOTE | 2019-03-06 12:56 | NUR ---
Upon taking the patient to the bathroom it was noted that her NADYA dressing was not working properly and was very loud. Removed TRAVIS wrap to assess. Bleeding present at IAC site and Hemovac site- both were D/C'd without complications and foam dressings were applied. NADYA dressing was completely covered with blood which was oozing from the sides. NADYA dressing was removed. Incision is glued with bruising present but no signs of infection are noted. It was cleansed with ChloraPrep and a new NADYA dressing was applied. Education given to the patient and her granddaughter on daily NADYA care as well as post discharge care. NADYA is now working properly with suction present and green light on. Will continue to monitor.
--- NOTE | 2019-03-06 15:53 | NUR ---
Patients IV in her right wrist was infiltrated and no longer working. Removed around 1550 without any complications. Dressing applied. Will continue to monitor.
[2019-03-06] MEDS ORDERED: BISACODYL 10 MG SUPP.RECT. PR PRN (16:00)
--- NOTE | 2019-03-06 17:29 | NUR ---
Patient has refused all of her insulin doses today stating, "she does not take it at home so she does not plan to take it here". Her granddaughter is at bedside who lives with her and helps care for her. Education completed on why it was ordered and the range we would like her blood sugar to be in. Patient and family stated understanding but still need ongoing education. Will continue to monitor.
[2019-03-06 17:53] VITALS: BP 114/66
[2019-03-06] MEDS ORDERED: TAMSULOSIN 0.4 MG CAP.ER.24H. PO SCH (18:00)
--- NOTE | 2019-03-06 18:05 | NUR ---
Patients granddaughter is concerned about the patient being able to go to [facility]. Fax number for them is [phone] per granddaughter. She states the facility told her they have not received anything yet on the patient and would like paperwork to get faxed to them again just incase it got lost. Will notify oncoming shift to have Medical Support Assistant follow up tomorrow.
--- NOTE | 2019-03-06 21:40 | NUR ---
PATIENT COMPLAINS OF "ANXIETY." REQUESTS TO SIT AT SIDE OF BED. PATIENT RESTLESS AND VERBALIZED "I HAVE TIGHTNESS IN CHEST LIKE WHEN I GET ANXIETY." OFFERED OXYGEN AND PATIENT REFUSED. PATIENT DENIES IT BEING CHEST PAIN. VITALS 146/75, PULSE 123 OXYGEN SATURATION ON ROOM AIR 96%, RESPIRATORY RATE 22. PATIENT STATES "I JUST WANT TO SIT UP AWHILE. CALL LIGHT IN REACH AND PATIENT INSTRUCTED TO CALL FOR ASSISTANCE. PATIENT VERBALIZED UNDERSTANDING. WILL MONITOR.
--- NOTE | 2019-03-06 21:50 | NUR ---
PATIENT DENIES PAIN AND ASKING TO GET BACK IN BED. PATIENT VERBALIZED 'ANXIETY BETTER." VITALS 121/81, PULSE 121 OXYGEN SATURATION 97 ON ROOM AIR. RESPIRATORY RATE 18. PATIENT LESS RESTLESS. PATIENT ASSISTED TO BED AND CALL LIGHT IN REACH.
[2019-03-07] MEDS: oxyCODONE/APAP 5/325 1 TAB TABLET PO PRN ×4 (02:06→20:52)
--- NOTE | 2019-03-07 05:06 | NUR ---
PATIENT HAS BEEN RESTING QUIETLY, NO FURTHER EPISODES OF "ANXIETY" NOTED.
[2019-03-07 06:25] VITALS: BP 114/66
[2019-03-07] MEDS: FERROUS SULFATE 325 MG TABLET. PO SCH ×2 (07:35→16:48)
[2019-03-07] MEDS: PIOGLITAZONE 15 MG TABLET. PO SCH (07:35)
[2019-03-07] MEDS: MELOXICAM 7.5 MG TABLET PO SCH (07:35)
[2019-03-07] MEDS: metFORMIN 850 MG TABLET PO SCH ×2 (07:36→16:48)
[2019-03-07] MEDS: GLIMEPIRIDE 2 MG TABLET. PO SCH (07:36)
[2019-03-07] MEDS: ASPIRIN ENTERIC COATED 325 MG TABLET.DR. PO SCH ×2 (07:36→20:51)
[2019-03-07] MEDS: MULTIVITAMIN with MINERAL TABLET. PO SCH (07:36)
[2019-03-07] MEDS: SENNOSIDES/DOCUSATE 8.6/50MG TABLET. PO SCH (07:36)
[2019-03-07] MEDS: INSULIN LISPRO 300 UNITS/3 ML INSULN.PEN. SQ SCH ×3 (07:38→16:51)
[2019-03-07] MEDS: hydroCHLOROthiazide 25 MG TABLET PO SCH (07:43)
[2019-03-07] MEDS: LISINOPRIL 20 MG TABLET PO SCH (07:43)
[2019-03-07 08:07] LABS: HEMATOCRIT 29.9 % (36.0-47.0); HEMOGLOBIN 10.2 g/dL (12.0-15.5)
--- NOTE | 2019-03-07 08:40 | PDOC ---
PROGRESS NOTES Subjective Subjective Pain controlled. No major complaints. Objective Vital Signs Vital Signs Date Time Temp Pulse Resp B/P (MAP) Pulse Ox O2 Delivery O2 Flow Rate FiO2 03/07/19 07:43 112 121/74 03/07/19 06:43 20 96 Room Air 03/07/19 06:25 98.4 98.4 03/05/19 19:45 2.0 Physical Exam NADYA dressing intact. Pain catheter and drain have been removed. Calf soft and nontender. Good AROM of ankle. Minimal erythema/warmth. Some ecchymosis medial/distal. Not yet safely ambulating with walker. Requires PT or nursing assistance, and gait belt for safe transition from chair or bed to walker. Labs Laboratory Tests Test 03/05/19 09:05 03/05/19 17:05 03/05/19 20:24 03/06/19 06:27 Urine Collection Type Unknown Urine Color Yellow Urine Clarity Clear Urine pH 5.0 Urine Specific [place] 1.025 Urine Protein Negative mg/dL (NEG-TRACE) Urine Glucose (UA) Negative mg/dL (NEG) Urine Ketones (Stick) Negative mg/dL (NEG) Urine Blood Negative (NEG) Urine Nitrite Negative (NEG) Urine Bilirubin Negative (NEG) Urine Urobilinogen Dipstick 0.2 mg/dL (0.2 mg/dL) Urine Leukocyte Esterase Negative (NEG) Urine RBC 0 /HPF (0-2) Urine WBC Occ /HPF (0-4) Urine Squamous Epithelial Cells Mod /LPF Urine Bacteria 0 /HPF (0-FEW) Urine Mucus Marked /LPF Glucose (Fingerstick) 257 mg/dL (70-99) 175 mg/dL (70-99) 114 mg/dL (70-99) Test 03/06/19 08:30 03/06/19 11:39 03/06/19 16:18 03/07/19 06:45 Hemoglobin 10.6 g/dL (12.0-15.5) Hematocrit 31.8 % (36.0-47.0) Mean Corpuscular Hemoglobin Concent 33 g/dL (31-37) Glucose (Fingerstick) 153 mg/dL (70-99) 178 mg/dL (70-99) 139 mg/dL (70-99) Test 03/07/19 07:47 Hemoglobin 10.2 g/dL (12.0-15.5) Hematocrit 29.9 % (36.0-47.0) Mean Corpuscular Hemoglobin Concent 34 g/dL (31-37) Laboratory Tests Test 03/06/19 11:39 03/06/19 16:18 03/07/19 06:45 03/07/19 07:47 Glucose (Fingerstick) 153 mg/dL (70-99) 178 mg/dL (70-99) 139 mg/dL (70-99) Hemoglobin 10.2 g/dL (12.0-15.5) Hematocrit 29.9 % (36.0-47.0) Mean Corpuscular Hemoglobin Concent 34 g/dL (31-37) Imaging Postoperative x-rays and report reviewed by me and show satisfactory alignment and no apparent complications. Assessment Assessment POD #2 TKA Plan Plan of Care Continue POC. Discharge planning for tomorrow. Aspirin 325 mg po BID and mobilization for DVT prophylaxis. JAYMIE HOBBS MD March 07, 2019 08:40
[2019-03-07 18:18] VITALS: BP 130/76
[2019-03-08] MEDS: oxyCODONE/APAP 5/325 1 TAB TABLET PO PRN ×3 (01:37→12:30)
--- NOTE | 2019-03-08 01:49 | NUR ---
Percocet given for c/o knee pain. Knee is swollen and quite bruised. Patient transfers very weakly.
[2019-03-08 06:00] VITALS: BP 103/65
--- NOTE | 2019-03-08 06:12 | NUR ---
Dangling at bedside, drinking coffee. Requests pain pill for "right before therapy."
[2019-03-08 07:23] LABS: HEMATOCRIT 28.3 % (36.0-47.0); HEMOGLOBIN 9.4 g/dL (12.0-15.5)
[2019-03-08] MEDS: INSULIN LISPRO 300 UNITS/3 ML INSULN.PEN. SQ SCH ×2 (08:00→11:38)
[2019-03-08] MEDS: ASPIRIN ENTERIC COATED 325 MG TABLET.DR. PO SCH (08:11)
[2019-03-08] MEDS: SENNOSIDES/DOCUSATE 8.6/50MG TABLET. PO SCH (08:11)
[2019-03-08] MEDS: MULTIVITAMIN with MINERAL TABLET. PO SCH (08:12)
[2019-03-08] MEDS: MELOXICAM 7.5 MG TABLET PO SCH (08:12)
[2019-03-08] MEDS: metFORMIN 850 MG TABLET PO SCH (08:12)
[2019-03-08] MEDS: PIOGLITAZONE 15 MG TABLET. PO SCH (08:12)
[2019-03-08] MEDS: FERROUS SULFATE 325 MG TABLET. PO SCH (08:12)
[2019-03-08] MEDS: GLIMEPIRIDE 2 MG TABLET. PO SCH (08:12)
[2019-03-08 11:00] VITALS: BP_SYST 120; BP_SYST 130; BP_DIAS 69; BP_DIAS 73
--- NOTE | 2019-03-08 11:45 | PDOC ---
PROGRESS NOTES Subjective Subjective No complaints. Planning on discharge today to SNU. Objective Vital Signs Vital Signs Date Time Temp Pulse Resp B/P (MAP) Pulse Ox O2 Delivery O2 Flow Rate FiO2 03/08/19 11:00 98.1 104 18 120/73 (89) 98 98.1 03/08/19 09:15 Room Air 03/05/19 19:45 2.0 Physical Exam NADYA intact with spotty drainage only. Knee ROM approaching 0-90 already. Good AROM ankle. Calf soft and nontender. Minimal warmth or erythema. Labs Laboratory Tests Test 03/06/19 16:18 03/07/19 06:45 03/07/19 07:47 03/07/19 11:47 Glucose (Fingerstick) 178 mg/dL (70-99) 139 mg/dL (70-99) 126 mg/dL (70-99) Hemoglobin 10.2 g/dL (12.0-15.5) Hematocrit 29.9 % (36.0-47.0) Mean Corpuscular Hemoglobin Concent 34 g/dL (31-37) Test 03/07/19 16:27 03/07/19 21:28 03/08/19 06:41 03/08/19 07:02 Glucose (Fingerstick) 172 mg/dL (70-99) 126 mg/dL (70-99) 105 mg/dL (70-99) Hemoglobin 9.4 g/dL (12.0-15.5) Hematocrit 28.3 % (36.0-47.0) Mean Corpuscular Hemoglobin Concent 33 g/dL (31-37) Test 03/08/19 11:13 Glucose (Fingerstick) 101 mg/dL (70-99) Laboratory Tests Test 03/07/19 11:47 03/07/19 16:27 03/07/19 21:28 03/08/19 06:41 Glucose (Fingerstick) 126 mg/dL (70-99) 172 mg/dL (70-99) 126 mg/dL (70-99) 105 mg/dL (70-99) Test 03/08/19 07:02 03/08/19 11:13 Hemoglobin 9.4 g/dL (12.0-15.5) Hematocrit 28.3 % (36.0-47.0) Mean Corpuscular Hemoglobin Concent 33 g/dL (31-37) Glucose (Fingerstick) 101 mg/dL (70-99) Assessment Assessment POD #3 TKA Plan Plan of Care Discharge planning for today. Continue PT and DVT prophylaxis. F/U 03/15/29 in office. JAYMIE HOBBS MD March 08, 2019 11:44
[2019-03-08] MEDS ORDERED: OXYC1TAB15 PO (11:49)
[2019-03-08] MEDS ORDERED: ASPI325T11 PO (11:50)
--- NOTE | 2019-03-08 11:53 | SNU/HH DC ---
DISCHARGE ORDERS DISCHARGE INFORMATION: DISCHARGE DATE: March 08, 2019 FINAL DIAGNOSIS osteoarthritis left knee CONDITION ON DISCHARGE: Stable CODE STATUS: Code Status: Full CUSTODIAL: SNF STAY <30 DAYS: Yes HOSPICE: HOSPICE: No HOSPICE EVAL & TREAT: No LTAC: ADMIT TO LTAC: No POST DISCHARGE ORDERS: ACTIVITY ORDERS: Progressive ambulation WEIGHT BEARING STATUS: As tolerated BATHING ORDERS: Shower-keep dressing dry DIET AFTER DISCHARGE: ADA WOUND/INCISION CARE: Keep wound/cast CDI, Do not change dressing, Other, see below (Cut tubing from NADYA dressing on Monday (7 days postop). Throw away excess tubing and battery pack. Leave remaining NADYA dressing intact.) CHECKS AFTER DISCHARGE: CHECKS AFTER DISCHARGE: Check blood sugar, ac/hs COMMENTS: Keep blood sugar below 180 for wound healing TREATMENT/EQUIPMENT ORDERS: ADAPTIVE EQUIPMENT NEEDED: Front wheeled walker Physical Therapy For: Evalulation/Treatment Occupational Therapy For: Evaluation/Treatment DISCHARGE MEDICATIONS: Home Meds Active Scripts Aspirin (ASPIRIN EC) 325 Mg Tablet.dr, 325 MG PO BID for prevent blood clots for 30 Days, #60 TAB.SR Take one aspirin by mouth twice a day for thirty days. Then resume low dose 81 mg aspirin daily. Prov:JAYMIE HOBBS MD 03/08/19 Oxycodone/Apap 5-325 (PERCOCET 5-325 MG TABLET ) 1 Each Tablet, 1-2 TAB PO PRN Q4HRS PRN for PAIN MDD 12 tabs for 14 Days, #80 TAB Take one or two tablets by mouth, every 4 hours as needed for pain Prov:JAYMIE HOBBS MD 03/08/19 Reported Medications Meloxicam (MELOXICAM) 15 Mg Tablet, 15 MG PO 1X for SURGERY, TAB 03/05/19 Acetaminophen (TYLENOL EXTRA STRENGTH) 500 Mg Tablet, 1000 MG PO PRN PRN for PAIN, TAB 02/21/19 Aspirin (ASPIRIN) 81 Mg Tab.chew, 1 TAB PO DAILY for HELP THE HEART, #30 TAB 3 Refills 02/21/19 Lisinopril/Hydrochlorothiazide (LISINOPRIL-HCTZ 20-25 MG TAB) 1 Each Tablet, 1 TAB PO DAILY for HYPERTENSION, #30 TAB 5 Refills 02/21/19 Ergocalciferol (Vitamin D2) (VITAMIN D2) 50,000 Unit Capsule, 1 CAP PO WEEKLY for supplement, #4 CAP 5 Refills 5/2/19 Pioglitazone Hcl (ACTOS) 30 Mg Tablet, 1 TAB PO DAILY for DIABETES, #30 TAB 5 Refills 11/08/18 Metformin Hcl (METFORMIN HCL) 850 Mg Tablet, 850 MG PO BIDWMEALS for ANTI- DIABETIC, TAB 0 Refills 11/08/18 Glimepiride (GLIMEPIRIDE) 4 Mg Tablet, 1 TAB PO DAILY for DIABETES, #30 TAB 5 Refills 11/08/18 JAYMIE HOBBS MD March 08, 2019 11:53
--- NOTE | 2019-03-08 11:55 | PDOC3 ---
Discharge Summary Visit Information Date of Admission: March 05, 2019 Date of Discharge: March 08, 2019 Admitting Diagnosis: osteoarthritis left knee Final Diagnosis osteoarthritis left knee. Aftercare following knee joint replacement surgery Brief Hospital Course Allergies Allergies Coded Allergies Type Severity Reaction Last Updated Verified latex Allergy Intermediate BROKE OUT WITH HIVES 03/06/19 Yes Vital Signs Vital Signs Date Time Temp Pulse Resp B/P (MAP) Pulse Ox O2 Delivery O2 Flow Rate FiO2 03/08/19 11:00 98.1 104 18 120/73 (89) 98 98.1 03/08/19 09:15 Room Air Lab Results Laboratory Tests Test 03/06/19 16:18 03/07/19 06:45 03/07/19 07:47 03/07/19 11:47 Glucose (Fingerstick) 178 mg/dL (70-99) 139 mg/dL (70-99) 126 mg/dL (70-99) Hemoglobin 10.2 g/dL (12.0-15.5) Hematocrit 29.9 % (36.0-47.0) Mean Corpuscular Hemoglobin Concent 34 g/dL (31-37) Test 03/07/19 16:27 03/07/19 21:28 03/08/19 06:41 03/08/19 07:02 Glucose (Fingerstick) 172 mg/dL (70-99) 126 mg/dL (70-99) 105 mg/dL (70-99) Hemoglobin 9.4 g/dL (12.0-15.5) Hematocrit 28.3 % (36.0-47.0) Mean Corpuscular Hemoglobin Concent 33 g/dL (31-37) Test 03/08/19 11:13 Glucose (Fingerstick) 101 mg/dL (70-99) Laboratory Tests Test 03/07/19 16:27 03/07/19 21:28 03/08/19 06:41 03/08/19 07:02 Glucose (Fingerstick) 172 mg/dL (70-99) 126 mg/dL (70-99) 105 mg/dL (70-99) Hemoglobin 9.4 g/dL (12.0-15.5) Hematocrit 28.3 % (36.0-47.0) Mean Corpuscular Hemoglobin Concent 33 g/dL (31-37) Test 03/08/19 11:13 Glucose (Fingerstick) 101 mg/dL (70-99) Brief Hospital Course 73 year old who presented with knee osteoarthritis, for elective total knee arthroplasty. The patient underwent total knee arthroplasty under general anesthesia the day of admission. Perioperative antibiotics and DVT prophylaxis were used. Postoperatively physical therapy and case management were consulted. The patient progressed and is stable for discharge. Discharge Information Condition at Discharge: Stable Follow Up: Weeks Disposition/Orders: D/C to Another Facility Scheduled Aspirin (Aspirin), 1 TAB PO DAILY, (Reported) Aspirin (Aspirin Ec), 325 MG PO BID Ergocalciferol (Vitamin D2) (Vitamin D2), 1 CAP PO WEEKLY, (Reported) Glimepiride (Glimepiride), 1 TAB PO DAILY, (Reported) Lisinopril/Hydrochlorothiazide (Lisinopril-Hctz 20-25 Mg Tab), 1 TAB PO DAILY, (Reported) Meloxicam (Meloxicam), 15 MG PO 1X, (Reported) Metformin Hcl (Metformin Hcl), 850 MG PO BIDWMEALS, (Reported) Pioglitazone Hcl (Actos), 1 TAB PO DAILY, (Reported) Scheduled PRN Acetaminophen (Tylenol Extra Strength), 1,000 MG PO PRN PRN for PAIN, (Reported) Oxycodone/Apap 5-325 (Percocet 5-325 Mg Tablet ), 1-2 TAB PO PRN Q4HRS PRN for PAIN Patient Instructions Patient Instructions Patient Instructions Continue to WBAT with walker. Keep dressing dry and intact. F/U with Dr. Gu 03/15/19 9:00 a.m. Physical therapy for TKA Continue DVT prophylaxis with Aspirin 325 mg by mouth twice a day for 30 days. JAYMIE GU MD March 08, 2019 11:55
[2019-03-08] MEDS: hydroCHLOROthiazide 25 MG TABLET PO SCH (12:32)
[2019-03-08 12:33] VITALS: BP 127/70
[2019-03-08] MEDS: LISINOPRIL 20 MG TABLET PO SCH (12:33)
--- NOTE | 2019-03-08 13:48 | NUR ---
Report called to Sosa LINDO at [facility].
--- NOTE | 2019-03-08 15:05 | NUR ---
Pt discharge by w/suzette rutherford to [place] for rehab. Granddaughter accompanied.
--- NOTE | 2019-03-08 18:05 | PATHOLOGY ---
[facility] Accession Number: [id number] . 01 Material submitted: . knee - LEFT KNEE BONE. Modifiers: left . 02 Diagnosis: Segments of bone and soft tissue, left total knee arthroplasty: - Advanced degenerative arthritis. . (JPM:mm; 03/08/2019) QLM/03/08/2019 . 02 Electronically signed: . Matty Corrigan MD, Pathologist NPI- [id number] . 01 Gross description: . Received in formalin labeled "Mela Lin, left knee bone ", are multiple segments of bone including apparent tibial plateau, patella and soft tissue measuring 12.4 x 10.0 x 1.5 cm in aggregate. No discrete meniscus is identified. Several bone segments are partially covered by pitted michelle and granular articular cartilage with areas of eburnation. Osteophytes are present. Director Of Financial Reporting sections submitted in A1 after decalcification. ([facility]; 03/06/2019) SHS/SHS . 02 Pathologist provided ICD-10: M17.12 . 02 CPT . 015866, 142500 Specimen Comment: A courtesy copy of this report has been sent to Specimen Comment: [phone], . Specimen Comment: Report sent to / DR OLIVIA Performed at: 01 [facility] [address], [place] [id number] MD Erick Cerda MD Phone: [phone] Performed at: 02 [facility] [address], [place] [id number] MD Matty Corrigan MD Phone: [phone]
[2019-03-14] MEDS ORDERED: ACET500T68 PO (03:02)
[2019-03-14] MEDS ORDERED: PROM12.58 PO (03:02)
[2019-03-14] MEDS ORDERED: BISA-42 PO (03:02)
[2019-03-14] MEDS ORDERED: MAG355OR11 PO (03:02)
[2019-03-14] MEDS ORDERED: POLY17PO29 PO (03:02)
[2019-03-19] MEDS ORDERED: Pantoprazole PO (08:55)
[2019-03-19] MEDS ORDERED: AMOX1TAB11 PO (08:55)
[2019-03-19] MEDS ORDERED: ACET500T68 PO (08:55)
[2019-03-19] MEDS ORDERED: OXYC1TAB15 PO (08:55)
== END 2019-03-08 15:05 | DRG 470 ==
LOC: OPSVCIP 08:46 → 4 SOUTHEST 17:30
PROVIDERS: ADMIT Orthopaedic Surgery; ATTEND Orthopaedic Surgery
PROC: 0SRD0J9 Replacement of Left Knee Joint with Synthetic Substitute, Cemented, Open Approach (ICD-10-PCS; principal; 2019-03-05 12:45)
DX: M17.12 Unilateral primary osteoarthritis, left knee (principal); E11.9 Type 2 diabetes mellitus without complications; I10 Essential (primary) hypertension; Z79.899 Other long term (current) drug therapy; Z91.040 Latex allergy status
CPT/HCPCS: 36415; 73560; 81001; 82962; 85014; 85018; 86850; 86900; 86901; 88305; 88311; A7015; C1713; J0171; J0360; J0696; J0780; J1100; J1815; J1885; J2001; J2250; J2270; J2370; J2405; J2704; J2710; J2795; J3010; J3260; J3370; J3490; J7030; J7120; J7620; 97116; 97150; 97530; 97535; A4461; C1769

== ENCOUNTER 2020-04-27 17:29 | Emergency (ER) | payer MEDICARE ==
[~2020-04-27] VITALS: Ht 165.1 cm; Wt 115.0 kg
[~2020-04-27 17:29] MED LIST changes: +ACET500T68 PO; +AMOX1TAB11 PO; +ASPI325T11 PO; +BISA-42 PO; +CEFD300C PO; -CELECOXIB 100 MG CAPSULE. PO PRN; -GLIM4TAB2 PO; +GLIM4TAB8 PO; +GUAI600T47 PO; -HYDROcodone/APAP 7.5/325MG 1 TAB TABLET PO PRN; -HYDROmorphone 2 MG/ML VIAL IV PRN; -IV RINGERS,LACTATED 1000ML 1,000 ML IV SCH; +LACT1CAP19 PO; +LEVO750T31 PO; +LIDO700A21 TD; -LIDOCAINE 1% PF 2 ML VIAL. ID PRN; +LISI1TAB20 PO; -LISI1TAB7 PO; +MAG355OR11 PO; +MELO15TA23 PO; -MORPHINE SULFATE 2 MG/ML VIAL. IV PRN; -MORPHINE SULFATE 5 MG, KETOROLAC 30MG VIAL 30 MG, ROPIVacaine 0.5% PF 60 ML, EPINEPHrin... INT ART ONE; -ONDANSETRON PF 4 MG/2 ML VIAL. IV PRN; +OXYC1TAB15 PO; +POLY17PO29 PO; -PROCHLORPERAZINE 10 MG/2 ML VIAL. IV PRN; +PROM12.58 PO; +Pantoprazole PO; -TRANEXAMIC ACID 1,000 MG in IV NS 50ML -- 1ST BAG INJ ONE; -TRANEXAMIC ACID 1,000 MG in IV NS 50ML -- 2ND BAG INJ ONE; -fentaNYL PF VIAL 100 MCG/2 ML VIAL IV PRN
[2020-04-27 19:50] VITALS: BP 201/88
--- NOTE | 2020-04-27 20:49 | PHYS DOC ---
Past Medical History Past Medical History: Diabetes-Type II, Hypertension (ROOSEVELT MONTERO APRN) Past Surgical History: Other Additional Past Surgical Histo: LEFT KNEE, RIGHT HAND, L ankle (ROOSEVELT MONTERO APRN) Smoking Status: Former Smoker Alcohol Use: None Drug Use: None (ROOSEVELT MONTERO APRN) General Adult EDM: Chief Complaint: SKIN PROBLEM HPI: HPI: Patient is a 74 year old female who presents with a diabetic foot ulcer to the right foot plantar surface. Patient states that she seen her primary doctor on Monday who dressed it at that time. Patient reports that her doctor told her not to change the dressing and to follow-up with wound care next week. Patient states that her granddaughter has been taking care of her diabetic foot ulcer cleansing it daily. Patient states that her granddaughter was concerned that her bandage was dirty and took the bandage off but had no bandage material to redress the foot ulcer. Patient denies any changes in sensation, drainage to the foot ulcer, pain, or other concerns related to this foot ulcer. Patient states that she needs her foot redressed so she can follow-up with her wound c are specialist this Monday afternoon. Patient denies any fever, chills, vision changes, nasal congestion, sore throat, cough or shortness of breath. Patient denies any chest pain or edema or swelling to her extremities. Patient denies any abdominal pain, nausea, vomiting, diarrhea, or bloody stools. Patient denies any changes in urination or bowel habits. Patient denies any back pain or joint pain. Nu[place] any rash, headaches, focal weaknesses, or sensory changes. Patient denies any increased urination or any increase in needing to drink fluids. Patient denies any swelling of her glands. Patient denies any depression or anxiety. Patient states she only wants to have her diabetic foot ulcer redressed and so she can make her appointment on Monday. (ROOSEVELT MONTERO APRN) Review of Systems: Review of Systems: Constitutional: Denies fever or chills. Eyes: Denies change in visual acuity. HENT: Denies nasal congestion or sore throat. Respiratory: Denies cough or shortness of breath. Cardiovascular: Denies chest pain or edema. GI: Denies abdominal pain, nausea, vomiting, bloody stools or diarrhea. : Denies dysuria. Musculoskeletal: Denies back pain or joint pain. Integument: Denies rash. Reports diabetic foot ulcer to the right plantar surface. Neurologic: Denies headache, focal weakness or sensory changes. Endocrine: Denies polyuria or polydipsia. Lymphatic: Denies swollen glands. Psychiatric: Denies depression or anxiety. (ROOSEVELT MONTERO APRN) Heart Score: Risk Factors: Risk Factors: DM, Current or recent (<one month) smoker, HTN, HLP, family history of CAD, obesity. Risk Scores: Score 0 - 3: 2.5% MACE over next 6 weeks - Discharge Home Score 4 - 6: 20.3% MACE over next 6 weeks - Admit for Clinical Observation Score 7 - 10: 72.7% MACE over next 6 weeks - Early Invasive Strategies (ROOSEVELT MONTERO APRN) Family History: Family History: No significant family history related to this current ER visit. (ROOSEVELT MONTERO APRN) Allergies: Allergies: Allergies Coded Allergies Type Severity Reaction Last Updated Verified latex Allergy Intermediate BROKE OUT WITH HIVES 03/13/19 Yes (ROOSEVELT MONTERO APRN) Physical Exam: PE: Constitutional: Well developed, well nourished, no acute distress, non-toxic appearance. HENT: Normocephalic, atraumatic, bilateral external ears normal, oropharynx moist, no oral exudates, nose normal. Eyes: PERRLA, EOMI, conjunctiva normal, no discharge. Bilateral pupils 5 mm and equal Neck: Normal range of motion, no tenderness, supple, no stridor. Cardiovascular:Heart rate regular rhythm, no murmur heart sounds S1-S2, no abnormalities noted presentation. Lungs & Thorax: Bilateral breath sounds clear to auscultation all lung luz. Abdomen: Bowel sounds normal all 4 quadrants, soft, no tenderness, no masses, no pulsatile masses. Skin: Warm, dry, no erythema, no rash. 1 cm x 2 cm plantar foot ulcer on the right without drainage. Skin granulation present. No signs concerning for infectious process. Back: No tenderness, no CVA tenderness. Extremities: No tenderness, no cyanosis, no clubbing, ROM intact, no edema. Neurologic: Alert and oriented X 3, normal motor function, normal sensory function, no focal deficits noted. Psychologic: Affect normal, judgement normal, mood normal. (ROOSEVELT MONTERO APRN) Current Patient Data: Vital Signs: Vital Signs Date Time Temp Pulse Resp B/P (MAP) Pulse Ox O2 Delivery O2 Flow Rate FiO2 04/27/20 19:50 98.3 91 18 201/88 (125) 99 Room Air 98.3 (ROOSEVELT MONTERO APRN) EKG: EKG: [] (ROOSEVELT MONTERO APRN) Radiology/Procedures: Radiology/Procedures: [] (ROOSEVELT MONTERO APRN) Course & Med Decision Making: Course & Med Decision Making Pertinent Labs and Imaging studies reviewed. (See chart for details) 74-year-old female patient arrives to the emergency department today complaining of needing her diabetic foot wound redressed. Patient states that she seen her doctor this past Monday who put a dressing on it and told her not to change until she seen a certified coding specialist. Patient states that her granddaughter came to care for her wound and cleanse it daily. Patient states her granddaughter was concerned that her dressing needed changed and took her dressing off but had no other materials or equipment to redress her diabetic foot ulcer. Patient arrives to this emergency department requesting that her foot ulcer be redressed so she can get to her appointment this coming Monday with wound care. Upon evaluation of the patient's diabetic foot ulcer on the right plantar foot was noted a pressure ulcer in between stages 2 and 3 with noted skin granulation without drainage or signs and symptoms of infectious process. ER nursing irrigated the wound and redressed the diabetic foot ulcer. Patient presented responsible and reasonable enough to make her appointment for Monday and to care for her diabetic foot ulcer at home with assistance of her granddaughter. Reviewed patient's discharge instructions to change dressing when needed and keep her appointment on 2019 with her certified coding specialist. Patient was given instructions to return to ER for worsening symptoms or other concerns patient was amenable to her discharge instructions. Patient discharged to home with self-care instructions and had no further questions. (ROOSEVELT MONTERO APRN) Dragon Disclaimer: Dragon Disclaimer: This electronic medical record was generated, in whole or in part, using a voice recognition dictation system. (ROOSEVELT MONTERO APRN) Departure Departure Impression: Primary Impression: Diabetic foot ulcer Qualified Codes: E11.621 - Type 2 diabetes mellitus with foot ulcer; L97.519 - Non-pressure chronic ulcer of other part of right foot with unspecified severity Disposition: HOME, SELF-CARE Condition: GOOD Referrals: EDWIN MARR D.O. (PCP) Patient Instructions: Diabetes and Foot Care, Skin Ulcer Additional Instructions: Clean and change your dressing on right foot twice a day until; you see your [facility] doctor this coming Monday. Return to the ER if symptoms worsen or for other concerns. Justicifation of Admission Dx: Justifications for Admission: Justification of Admission Dx: N/A (ROOSEVELT MONTERO APRN) Attending Signature Attending Signature I have participated in the care of this patient and I have reviewed and agree with all pertinent clinical information above including history, exam, and re commendations. (DICKSON HELTON DO) ROOSEVELT MONTERO APRN Apr 27, 2020 20:49 DICKSON HELTON DO Apr 28, 2020 03:07
== END 2020-04-27 21:05 | disposition home or self-care (01) ==
LOC: ER 17:29
DX: E11.621 Type 2 diabetes mellitus with foot ulcer (principal); L97.519 Non-pressure chronic ulcer of other part of right foot with unspecified severity; I10 Essential (primary) hypertension; E11.9 Type 2 diabetes mellitus without complications; Z87.891 Personal history of nicotine dependence; Z91.040 Latex allergy status
CPT/HCPCS: 99282

== ENCOUNTER → 2020-05-15 | Outpatient (CLI) | payer MEDICARE ==
[2020-04-27 19:50] VITALS: BP 201/88
--- NOTE | 2020-05-15 16:25 | RAD ---
Ankle-brachial indices 05/15/2020 INDICATION: Nonhealing bilateral foot ulcers COMPARISON STUDY: None Discussion: Blood pressure measurements were obtained at the arms and ankles bilaterally. 3 Right brachial pressure: 1 43 mmHg Left brachial pressure: 134 mmHg Right ankle pressure: 105 mmHg Left ankle pressure: 135 mmHg Right WOLFGANG 0.73 Left WOLFGANG 0.89 Ultrasound evaluation of the major arteries of the bilateral lower extremities including color Doppler imaging spectral analysis was also performed. There is diffuse, severe atherosclerotic vascular calcification seen. There is mildly elevated velocity in right common femoral artery. Mild stenosis is possible. Visualized profunda artery is grossly patent. Focal elevation of velocity in the mid right SFA to 567 cm/s is seen consistent with moderate to high-grade stenosis. Blunting of more distal waveforms is seen. Popliteal artery is diffusely calcified. Monophasic flow seen within the posterior tibial, peroneal, dorsalis pedis, and anterior tibial arteries. Evaluation is limited given the likely presence of significant inflow disease. Blunted monophasic waveforms are seen in the left common femoral artery. This finding raises concern for more proximal aortoiliac iliac stenosis. Left common femoral artery demonstrates mild elevation of velocity. Again there is dense calcification the left SFA where there is focal elevation of velocities 436 cm/s suggesting a moderate to severe stenosis. Blunting of more distal waveforms is seen. Popliteal artery is calcified but patent. Posterior tibial, peroneal, anterior tibial, dorsalis pedis artery demonstrate monophasic waveforms similar to contralateral side. IMPRESSION: 1. Possible hemodynamic significant aortoiliac stenosis on the left. 2. Diffuse severe atherosclerotic vascular disease 3. Focal elevations in velocities within the bilateral superficial femoral arteries consistent with moderate to severe stenoses. 4. Diminished ABIs bilaterally right greater than left, consistent with significant atherosclerotic vascular disease 5. Consider conventional angiography for further characterization and possible endovascular intervention Electronically signed by: Faustino Sullivan MD (05/15/2020 4:22 PM) [id number]
== END | disposition home or self-care (01) ==
LOC: US 14:19
PROVIDERS: ATTEND Preventive Medicine Undersea and Hyperbaric Medicine
DX: I70.202 Unspecified atherosclerosis of native arteries of extremities, left leg (principal); E13.621 Other specified diabetes mellitus with foot ulcer; I77.1 Stricture of artery; I25.10 Atherosclerotic heart disease of native coronary artery without angina pectoris
CPT/HCPCS: 93922; 93925

== ENCOUNTER → 2020-05-29 | Outpatient (CLI) | payer MEDICARE ==
[~2020-05-29] MED LIST changes: +GADOTERATE 7.5 MMOL/15ML VIAL. IVP ONE
[2020-05-29 11:52] LABS: CREATININE 1.2 mg/dL (0.6-1.0)
--- NOTE | 2020-05-29 15:10 | RAD ---
EXAM: MRI LEFT FOOT, ATTENTION TO FOREFOOT-MID FOOT DATE: 05/29/2020 11:15 AM CLINICAL HISTORY: Reason: NON HEALING FOOT WOUND/R PLANTAR DIABETIC FOOT ULC / Spl. Instructions: 21ML DOTAREM / History: COMPARISON: None available. TECHNIQUE: Multiplanar, multisequence MR imaging of the forefoot was performed before and after the administration of IV contrast. FINDINGS: Soft tissue irregularity ulceration is seen at the plantar aspect of the second and third metatarsal head. Soft tissue signal changes are seen overlying the first metatarsal head as well. No subjacent T1 marrow signal changes or edema is seen. No evidence for osteomyelitis. Mild medial subluxation of the hallux MTP sesamoids. Hallux valgus. There is moderate fatty atrophy of intrinsic muscles of the foot. Visualized flexor and extensor tendons are grossly intact. No tenosynovitis. No loculated fluid collection is seen. Mild edema and enhancement within the dorsal forefoot soft tissues, possibly cellulitis. IMPRESSION: 1. Soft tissue ulceration at the plantar aspect of the second and third metatarsal head without MRI findings of osteomyelitis. 2. Soft tissue edema and enhancement about the forefoot may be seen with cellulitis. No discrete loculated fluid collection is seen. Electronically signed by: Turner Chung MD (05/29/2020 3:07 PM) WENDY
--- NOTE | 2020-05-29 18:04 | RAD ---
Bilateral venous reflux study INDICATION: Bilateral nonhealing foot wounds. TECHNIQUE: Ultrasound of the superficial veins of the bilateral lower extremities focused on the greater saphenous vein from the distal calf to the saphenofemoral junction was performed with grayscale, color and spectral Doppler imaging with provocative maneuvers for reflux. FINDINGS: Right leg: At the saphenofemoral junction, reflux time measured 3.27 seconds. Greater saphenous vein measures 0.85 cm. In the proximal thigh, reflux time measured 1.68 seconds Greater saphenous vein measured 0.71 cm. In the mid thigh, reflux time measured 1.8 seconds. Greater saphenous vein measured 0.38 cm. In the distal thigh, greater saphenous vein contained a sheath. In the proximal right calf, reflux time measured 2.17 seconds. Greater saphenous vein measures 0.34 cm. In the mid calf, reflux time was 0 seconds. Greater saphenous vein measured 0.17 cm. In the distal calf, reflux time was 0 seconds. Greater saphenous vein measured 0.21 cm. Lesser saphenous vein showed no reflux. In the thigh, the vessel measured 0.29 cm. In the proximal calf, it measured 0.49 cm. Left leg: At the saphenofemoral junction, reflux time measured 0.73 seconds. Greater saphenous vein measures 0.85 cm. In the proximal thigh, reflux time measured 3.09 seconds Greater saphenous vein measured 0.55 cm. In the mid thigh, reflux time measured 1.05 seconds. Greater saphenous vein measured 0.37 cm. In the distal thigh, reflux time measured 2.88 seconds. Greater saphenous vein measures 0.26 cm. In the proximal left calf, reflux time measured 0 seconds. Greater saphenous vein measures 0.31 cm. In the mid calf, reflux time was 0 seconds. Greater saphenous vein measured 0.15 cm. In the distal calf, reflux time was 0 seconds. Greater saphenous vein measured 0.26 cm. Lesser saphenous vein showed reflux time of 3.47 seconds in the distal thigh. Otherwise no reflux was observed. In the thigh, it measures 0.40 cm. In the proximal calf, it measured 0.49 cm. In the mid calf, it measured 0.32 cm. In the distal calf, it measures 0.26 cm IMPRESSION: 1. Venous reflux observed bilaterally in the greater saphenous veins. 2. Reflux identified in the lesser saphenous vein at the left thigh. Otherwise no lesser saphenous venous reflux observed. Electronically signed by: Chitra Rivas MD (05/29/2020 6:01 PM) [id number]
== END ==
LOC: MRI 13:12
PROVIDERS: ATTEND Preventive Medicine Undersea and Hyperbaric Medicine
DX: E11.621 Type 2 diabetes mellitus with foot ulcer (principal); L97.519 Non-pressure chronic ulcer of other part of right foot with unspecified severity; M20.11 Hallux valgus (acquired), right foot; R60.0 Localized edema
CPT/HCPCS: 36415; 73720; 82565; 93970; A9575